=== PATIENT | male | born 1955 | race American Indian/Alaskan Native ===

== ENCOUNTER 2016-11-07 15:47 | Emergency (ER) | payer BC, MEDICARE ==
[2016-11-07 15:58] VITALS: BP 146/88
[2016-11-07] MEDS ORDERED: FUL-GLO OP ONE (17:14)
[2016-11-07] MEDS ORDERED: TETRACAINE 0.5% OS STA (17:14)
--- NOTE | 2016-11-07 17:30 | Emergency Department Report ---
ED General Adult HPI - General Chief complaint: Skin/Abscess/Foreign Body Stated complaint: POSS SPIDER BITE NECK Time Seen by Provider: 11/07/16 17:01 Source: patient Mode of arrival: Ambulatory Limitations: No Limitations - History of Present Illness Initial comments: PT states he works for the [employer]. PT states that yesterday, he was eating outside, and it felt like something bit his neck. PT states he could feel 3 puncture wounds to the L side of his neck. PT states after work, he was outside and he thinks he got some mosquito bites. PT states he had itchy painful bumps to his L side of face. PT reports the L side of his tongue is hurting him and he has had subjective fevers. Pt states he asked an EMT for assistance and was told that he had spider bite. PT states he was cleaning the bite site with alcohol but the pain and itching has increased. PT states he was sent home from work today. PT states he has worked outside for a while and he has never felt this way after an insect bite MD Complaint: rash -: Gradual, days(s) Location: neck Radiation: non-radiation Severity scale (0 -10): 8 Quality: burning Consistency: constant Improves with: none Worsens with: other (gradually ) Associated Symptoms: fever/chills, rash. denies: chest pain, nausea/vomiting Treatments Prior to Arrival: none - Related Data Previous Rx's Medication Instructions Recorded Last Taken Type HYDROcodone/APAP 5-325 [[place] 1 each PO Q6HR PRN #12 tablet 11/07/16 Unknown Rx 5/325] Ibuprofen [Motrin] 600 mg PO Q8H PRN #15 tablet 11/07/16 Unknown Rx Valacyclovir HCl [Valtrex] 1,000 mg PO TID #21 tablet 11/07/16 Unknown Rx Allergies Allergy/AdvReac Type Severity Reaction Status Date / Time No Known Allergies Allergy Verified 11/07/16 15:53 ED Review of Systems ROS: Stated complaint: POSS SPIDER BITE NECK Other details as noted in HPI Comment: All other systems reviewed and negative Constitutional: fever, malaise Eyes: eye discharge (tearing ) ENT: throat pain (mouth pain, left side of tongue pain ) Gastrointestinal: denies: abdominal pain Musculoskeletal: other (neck pain ) Skin: other (bites ) ED Past Medical Hx - Past Medical History Previous Medical History?: Yes Hx Hypertension: Yes Additional medical history: High cholesterol - Surgical History Hx Pacemaker: Yes - Social History Smoking Status: Never Smoker Substance Use Type: None - Medications Home Medications: Home Medications Medication Instructions Recorded Confirmed Last Taken Type HYDROcodone/APAP 5-325 [[place] 1 each PO Q6HR PRN #12 tablet 11/07/16 Unknown Rx 5/325] Ibuprofen [Motrin] 600 mg PO Q8H PRN #15 tablet 11/07/16 Unknown Rx Valacyclovir HCl [Valtrex] 1,000 mg PO TID #21 tablet 11/07/16 Unknown Rx ED Physical Exam - General Limitations: No Limitations General appearance: alert, in no apparent distress - Head Head exam: Present: atraumatic, normocephalic, other (scabs to L cheek ) - Eye Eye exam: Present: normal appearance, PERRL, EOMI, other (no dendritic ulcerations noted to L cornea ). Absent: conjunctival injection, nystagmus, periorbital swelling, periorbital tenderness - ENT ENT exam: Present: normal exam, mucous membranes moist, TM's normal bilaterally , normal external ear exam, other (post auricular vesicles ) - Neck Neck exam: Present: tenderness, full ROM, lymphadenopathy, other (rash to L post neck, appears to be ruptured blisters, erythematous base, scabs present ). Absent: meningismus - Respiratory Respiratory exam: Present: normal lung sounds bilaterally. Absent: respiratory distress, chest wall tenderness - Cardiovascular Cardiovascular Exam: Present: regular rate, normal rhythm, normal heart sounds - GI/Abdominal GI/Abdominal exam: Present: soft. Absent: tenderness - Extremities Exam Extremities exam: Present: normal inspection, full ROM - Back Exam Back exam: Present: normal inspection, full ROM. Absent: tenderness, CVA tenderness (R), CVA tenderness (L), rash noted - Neurological Exam Neurological exam: Present: alert, oriented X3, normal gait - Psychiatric Psychiatric exam: Present: normal affect, normal mood - Skin Skin exam: Present: warm, dry, erythema, vesicles. Absent: intact ED Course Vital Signs 11/07/16 15:53 Temperature 97.3 F L Pulse Rate 81 Respiratory 16 Rate Blood Pressure 146/88 O2 Sat by Pulse 100 Oximetry - Reevaluation(s) Reevaluation #1: 11/07/16 17:38 PT aware of dx. PT aware he is contagious. PT states he has been by his 1 year old granddaughter. PT advised to inform his grandchild's parents and to have them follow up with the [place] police [place] - Pulse Oximetry Interpretation Digit-Finger Initial Pulse Oximetry Readin Actions Taken: none ED Medical Decision Making - Differential Diagnosis spider bite, shingles Critical Care Time: No Critical care attestation.: If time is entered above; I have spent that time in minutes in the direct care of this critically ill patient, excluding procedure time. ED Disposition Clinical Impression: Shingles Qualifiers: Herpes zoster complications: without complications Qualified Code(s): B02.9 - Zoster without complications Disposition: TO HOME OR SELFCARE Is pt being admited?: No Does the pt Need Aspirin: No Condition: Stable Instructions: Herpes Zoster (ED) Additional Instructions: IF you need to take [place] to treat your pain, do not drive or drink alcohol after Follow up with PCP in 3-5 days You are contagious. Avoid children under 1 years of age, those who have not had the chicken pox or the chicken pox vaccine and the elderly Return to the ED if you develop eye pain, changes in your vision or rash around your eyes Prescriptions: HYDROcodone/APAP 5-325 [[place] 5/325] 1 each PO Q6HR PRN #12 tablet PRN Reason: Pain Ibuprofen [Motrin] 600 mg PO Q8H PRN #15 tablet PRN Reason: Pain Valacyclovir HCl [Valtrex] 1,000 mg PO TID #21 tablet Referrals: PRIMARY CAREMD [Primary Care Provider] - 3-5 Days RODERICK BLAKE MD [Staff Physician] - 3-5 Days [facility] [Outside] - 3-5 Days Forms: Work/School Release Form(ED) Time of Disposition: 18:03
== END 2016-11-07 18:24 | disposition home or self-care (01) ==
LOC: ED 15:47
DX: B02.9 Zoster without complications (principal); E78.00 Pure hypercholesterolemia, unspecified; I10 Essential (primary) hypertension
CPT/HCPCS: 99282

== ENCOUNTER 2018-04-28 14:58 | Emergency (ER) | payer BC ==
[2018-04-28 15:35] VITALS: BP 115/78
[2018-04-28 16:23] LABS: Hematocrit 45.3 % (35.5-45.6); Hemoglobin 15.5 gm/dl (11.8-15.2); Mean Corpuscular HGB Conc 34 % (32-34); Mean Corpuscular Volume 91 fl (84-94); Platelet Count 179 K/mm3 (140-440); Red Cell Distribution Width 12.9 % (13.2-15.2)
[2018-04-28 16:42] LABS: BUN/Creatinine Ratio 17; Blood Urea Nitrogen 22 mg/dL (9-20); Calcium 8.7 mg/dL (8.4-10.2); Hemolysis Index 50
[2018-04-28 17:03] LABS: Alanine Aminotransferase < 5 units/L (7-56)
--- NOTE | 2018-04-28 17:41 | XRay Report ---
FINAL REPORT EXAM: XR CHEST ROUTINE 2V HISTORY: COUGH TECHNIQUE: PA and lateral views of the chest Comparison: None FINDINGS: There is mild elevation of the right hemidiaphragm. There is no evidence of focal infiltrate, pneumothorax or pleural fluid collection. The cardiomediastinal silhouette is normal in appearance. The bony structures are unremarkable. IMPRESSION: 1. No evidence of an acute pulmonary process 2. Elevation the right hemidiaphragm. If further imaging is required, CT chest may be helpful.
--- NOTE | 2018-04-28 18:16 | ED Elopement Review ---
ED Pt Elopement review - Results review Lab results: Laboratory Tests 04/28/18 04/28/18 16:13 16:13 WBC 7.5 RBC 5.00 Hgb 15.5 H Hct 45.3 MCV 91 MCH 31 MCHC 34 RDW 12.9 L Plt Count 179 Sodium 140 Potassium 4.1 Chloride 103.2 Carbon Dioxide 25 Anion Gap 16 BUN 22 H Creatinine 1.3 Estimated GFR > 60 BUN/Creatinine Ratio 17 Glucose 85 Calcium 8.7 Total Bilirubin 0.20 AST < 5 L ALT < 5 L Alkaline Phosphatase 73 Troponin T < 0.010 Total Protein 7.3 Albumin 4.0 Albumin/Globulin Ratio 1.2 - Call Back decision Pt Call Back Decision: No action required
[2018-04-28] MEDS ORDERED: DECADRON IV ONE (20:05)
[2018-04-28] MEDS ORDERED: DUONEB *Not for PRN Use IH ONE (20:05)
[2018-04-28] MEDS ORDERED: THORAZINE 25 MG in NACL 0.9% 50 ML IV ONE (21:05)
--- NOTE | 2018-04-28 21:17 | Emergency Department Report ---
- General Chief Complaint: Upper Respiratory Infection Stated Complaint: FEVER/COUGH/DIZZY Time Seen by Provider: 04/28/18 19:40 Source: patient Mode of arrival: Ambulatory Limitations: No Limitations - History of Present Illness Initial Comments: This is a 63-year-old male nontoxic, well nourished in appearance, no acute signs of distress presents to the ED with c/o of productive cough, subjective fevers, body aches, rhinorrhea, nasal congestion x3 days. Patient describes pro ductive cough as yellow mucus production. Patient denies any sick contact. Patient stated that he seen his PCP and was given codeine cough syrup which now he started to have burping as well. Patient stated that his PCP prescribed him Thorazine but has not filled it yet. Patient denies any recent travels, long car, recent hospital stays. Patient denies any calf pain or calf tenderness. Patient denies any chest pain, short of breath, fever, chills, nausea, vomiting, hemoptysis, numbness, tingling, headache or stiff neck. Patient denies any allergies or PMH. MD Complaint: cough, rhinorrhea, nasal congestion, other (body aches) -: days(s) (3) Severity: mild Severity scale (0 -10): 8 Quality: aching Consistency: constant Improves With: nothing Worsens With: nothing Associated Symptoms: fever, rhinorrhea, nasal congestion, cough. denies: chills, myalgias, diaphoresis, headache, sore throat, stiff neck, chest pain, shortness of breath, abdominal pain, nausea, vomiting, diarrhea, dysuria, rash, confusion, right sweats, weight loss, epistaxis, hoarseness, ear pain Treatments Prior to Arrival: none - Related Data Previous Rx's Medication Instructions Recorded Last Taken Type HYDROcodone/APAP 5-325 [[place] 1 each PO Q6HR PRN #12 tablet 11/07/16 Unknown Rx 5/325] Ibuprofen [Motrin] 600 mg PO Q8H PRN #15 tablet 11/07/16 Unknown Rx Valacyclovir HCl [Valtrex] 1,000 mg PO TID #21 tablet 11/07/16 Unknown Rx ALBUTEROL Inhaler(NF) [VENTOLIN 2 puff IH Q4-6H PRN #1 inha 04/28/18 Unknown Rx Inhaler(NF)] Azithromycin [Zithromax Z-AYAH] 250 mg PO DAILY #6 tablet 04/28/18 Unknown Rx Benzonatate [Tessalon Perle] 100 mg PO Q8H PRN #20 capsule 04/28/18 Unknown Rx Prednisone [predniSONE 10 mg 10 mg PO .TAPER #1 tab.ds.pk 04/28/18 Unknown Rx (6-Day Pack, 21 Tabs)] Allergies Allergy/AdvReac Type Severity Reaction Status Date / Time No Known Allergies Allergy Verified 11/07/16 15:53 ED Review of Systems ROS: Stated complaint: FEVER/COUGH/DIZZY Other details as noted in HPI Constitutional: fever. denies: chills Eyes: denies: eye pain, eye discharge, vision change ENT: congestion. denies: ear pain, throat pain Respiratory: cough. denies: shortness of breath, wheezing Cardiovascular: denies: chest pain, palpitations Endocrine: no symptoms reported Gastrointestinal: denies: abdominal pain, nausea, diarrhea Genitourinary: denies: urgency, dysuria Musculoskeletal: denies: back pain, joint swelling, arthralgia Skin: denies: rash, lesions Neurological: denies: headache, weakness, paresthesias Psychiatric: denies: anxiety, depression Hematological/Lymphatic: denies: easy bleeding, easy bruising ED Past Medical Hx - Past Medical History Hx Hypertension: Yes Additional medical history: High cholesterol - Surgical History Past Surgical History?: Yes Hx Pacemaker: Yes - Social History Smoking Status: Never Smoker Substance Use Type: None - Medications Home Medications: Home Medications Medication Instructions Recorded Confirmed Last Taken Type HYDROcodone/APAP 5-325 [[place] 1 each PO Q6HR PRN #12 tablet 11/07/16 Unknown Rx 5/325] Ibuprofen [Motrin] 600 mg PO Q8H PRN #15 tablet 11/07/16 Unknown Rx Valacyclovir HCl [Valtrex] 1,000 mg PO TID #21 tablet 11/07/16 Unknown Rx ALBUTEROL Inhaler(NF) [VENTOLIN 2 puff IH Q4-6H PRN #1 inha 04/28/18 Unknown Rx Inhaler(NF)] Azithromycin [Zithromax Z-AYAH] 250 mg PO DAILY #6 tablet 04/28/18 Unknown Rx Benzonatate [Tessalon Perle] 100 mg PO Q8H PRN #20 capsule 04/28/18 Unknown Rx Prednisone [predniSONE 10 mg 10 mg PO .TAPER #1 tab.ds.pk 04/28/18 Unknown Rx (6-Day Pack, 21 Tabs)] ED Physical Exam - General Limitations: No Limitations General appearance: alert, in no apparent distress - Head Head exam: Present: atraumatic, normocephalic - Eye Eye exam: Present: normal appearance - ENT ENT exam: Present: normal exam, normal orophraynx, mucous membranes moist - Neck Neck exam: Present: normal inspection, full ROM. Absent: tenderness, meningismus - Respiratory Respiratory exam: Present: normal lung sounds bilaterally, wheezes (bilateral lower lobes). Absent: respiratory distress, rales, rhonchi, stridor, chest wall tenderness, accessory muscle use, decreased breath sounds, prolonged expiratory - Cardiovascular Cardiovascular Exam: Present: regular rate, normal rhythm, normal heart sounds. Absent: bradycardia, tachycardia, irregular rhythm, systolic murmur, diastolic murmur, rubs, gallop - GI/Abdominal GI/Abdominal exam: Present: soft, normal bowel sounds. Absent: distended, tenderness, guarding, rebound, rigid, diminished bowel sounds - Rectal Rectal exam: Present: deferred - Extremities Exam Extremities exam: Present: normal inspection, full ROM, normal capillary refill - Back Exam Back exam: Present: normal inspection, full ROM - Neurological Exam Neurological exam: Present: alert, oriented X3 - Psychiatric Psychiatric exam: Present: normal affect, normal mood - Skin Skin exam: Present: warm, dry, intact, normal color. Absent: rash ED Course Vital Signs 04/28/18 04/28/18 04/28/18 15:31 21:20 21:27 Temperature 97.5 F L Pulse Rate 71 Pulse Rate [ 76 80 Anterior Bilateral Throughout] Respiratory 18 Rate Respiratory 16 18 Rate [Anterior Bilateral Throughout] Blood Pressure 115/78 O2 Sat by Pulse 97 Oximetry - Reevaluation(s) Reevaluation #1: 04/28/18 21:18 Patient is speaking in full sentences with no signs of distress noted. ED Medical Decision Making - Lab Data Result diagrams: 04/28/18 16:13 04/28/18 16:13 - Medical Decision Making This is a 63-year-old male that presents with bronchitis. Patient is stable and was examined by me. Chest x-ray has been obtained and dictated by radiologist with normal exam. Patient is notified of x-ray results with no questions noted. CT of abdominal with contrast obtained due to abnormal xray of chest. Dictated by the radiologist and is unremarkable. Due to patient having symptoms of upper respiratory infection and worsening I will treat patient empirically with zpak. Patient was instructed to increase hydration, rest and take Motrin for fever episodes. Patient received prednisone and DuoNeb in the ED. wheezing has subsided after treatment. Patient also received Thorazine and stated hiccups subsided as well. Vitals stable. Patient is nonfebrile and normal heart rate. Patient was instructed Follow-up with a primary care doctor in 3-5 days or if symptoms worsen and continue return to emergency room as soon as possible. At time time of discharge, the patient does not seem toxic or ill in appearance. No acute signs of distress noted. Patient agrees to discharge treatment plan of care. No further questions noted by the patient. Critical care attestation.: If time is entered above; I have spent that time in minutes in the direct care of this critically ill patient, excluding procedure time. ED Disposition Clinical Impression: Bronchitis, Hiccups Disposition: DC-01 TO HOME OR SELFCARE Is pt being admited?: No Does the pt Need Aspirin: No Condition: Stable Instructions: Acute Bronchitis (ED) Additional Instructions: Follow-up with a primary care doctor in 3-5 days or if symptoms worsen and continue return to emergency room as soon as possible. Prescriptions: ALBUTEROL Inhaler(NF) [VENTOLIN Inhaler(NF)] 2 puff IH Q4-6H PRN #1 inha PRN Reason: Wheezing Azithromycin [Zithromax Z-AYAH] 250 mg PO DAILY #6 tablet Benzonatate [Tessalon Perle] 100 mg PO Q8H PRN #20 capsule PRN Reason: Cough Prednisone [predniSONE 10 mg (6-Day Pack, 21 Tabs)] 10 mg PO .TAPER #1 tab.ds.pk Referrals: PRIMARY CAREMD [Primary Care Provider] - 3-5 Days TODD HE MD [Staff Physician] - 3-5 Days [facility] [Outside] - 3-5 Days Forms: Work/School Release Form(ED)
--- NOTE | 2018-04-28 22:33 | Cat Scan Report ---
FINAL REPORT EXAM: CT ABDOMEN PELVIS W CON HISTORY: epigastric pain TECHNIQUE: Following IV administration of 100 cc of Omnipaque 350 axial helical imaging was performe d through the abdomen and pelvis with sagittal and coronal reformatted images obtained. Delayed axial helical imaging was also performed through the lower abdomen and pelvis. Comparison: None FINDINGS: There is platelike atelectasis or scar formation in the right lung base. There elevation the right hemidiaphragm. The liver, spleen, pancreas, kidneys and adrenal glands are unremarkable in appearance. The gallbladder is moderately distended and unremarkable. The bowel is normal caliber. The appendix is normal caliber. There is colonic diverticulosis without radiographic evidence of diverticulitis. There is no evidence of pneumoperitoneum or free fluid. The abdominal aorta is normal caliber. There is atherosclerotic vascular calcification of the large a nd medium caliber arteries. There is no evidence of pathologic intra-abdominal adenopathy by CT size criteria. The urinary bladder is moderately to markedly distended but otherwise unremarkable. The prostate gland appears to be upper limits of normal size. There are small bilateral inguinal hernias that contain fat. The bony structures are notable for multiple level degenerative facet change in the lumbar spine and evidence of degenerative disc change at the L5-S1 level. There is a small umbilical hernia that contains fat. IMPRESSION: 1. No evidence of an acute intra-abdominal process. 2. Colonic diverticulosis. 3. Moderate to marked distention of the urinary bladder. 4. Small bilateral inguinal hernias that contain fat. 5. Spondylitic change lumbar spine. 6. Small umbilical hernia that contains fat.
== END 2018-04-28 22:55 | disposition home or self-care (01) ==
LOC: ED 14:58
DX: J40 Bronchitis, not specified as acute or chronic (principal); R06.6 Hiccough; I10 Essential (primary) hypertension; E78.00 Pure hypercholesterolemia, unspecified
CPT/HCPCS: 36415; 71046; 74177; 80053; 84484; 85027; 93005; 93010; 94640; 96365; 96375; 99284; J1100; J3230; Q9967

== ENCOUNTER 2020-03-01 16:47 | Emergency (ER) | payer BC ==
[2020-03-01 17:41] VITALS: BP 142/63
[2020-03-01] MEDS ORDERED: IBUPROFEN 800 MG TAB PO ONE (17:45)
[2020-03-01] MEDS ORDERED: CYCLOBENZAPRINE 10 MG TAB PO ONE (17:45)
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
== END 2020-03-01 20:26 | disposition home or self-care (01) ==
LOC: ED 16:47
DX: S39.012A Strain of muscle, fascia and tendon of lower back, initial encounter (principal); S13.4XXA Sprain of ligaments of cervical spine, initial encounter; I10 Essential (primary) hypertension; Z98.890 Other specified postprocedural states; Z79.1 Long term (current) use of non-steroidal anti-inflammatories (NSAID); Z79.2 Long term (current) use of antibiotics; Z79.899 Other long term (current) drug therapy; V49.49XA Driver injured in collision with other motor vehicles in traffic accident, initial encounter; Y93.89 Activity, other specified; Y92.410 Unspecified street and highway as the place of occurrence of the external cause; Y99.8 Other external cause status
CPT/HCPCS: 72040; 72100

== ENCOUNTER 2021-07-12 22:43 | Emergency (ER) | payer BC, OTHER ==
[2021-07-13] MEDS ORDERED: IBUPROFEN 600 MG TAB PO ONE (01:03)
[2021-07-13] MEDS ORDERED: SODIUM CHLORIDE 0.9% 1000 ML 1,000 ML IV ONE (01:03)
[2021-07-13] MEDS ORDERED: ACETAMINOPHEN 500 MG TAB PO ONE (01:03)
[2021-07-13 01:32] LABS: Basophils % (Auto) 0.6 % (0.0-1.8); Eosinophils # (Auto) 0.2 K/mm3 (0.0-0.4); Eosinophils % (Auto) 4.3 % (0.0-4.3); Hematocrit 41.3 % (35.5-45.6); Hemoglobin 13.7 gm/dl (11.8-15.2); Lymphocytes # (Auto) 2.8 K/mm3 (1.2-5.4); Lymphocytes % (Auto) 50.5 % (13.4-35.0); Mean Corpuscular HGB Conc 33 % (32-34); Mean Corpuscular Volume 88 fl (84-94); Monocytes # (Auto) 0.5 K/mm3 (0.0-0.8); Monocytes % (Auto) 9.1 % (0.0-7.3); Platelet Count 170 K/mm3 (140-440); Red Blood Count 4.67 M/mm3 (3.65-5.03); Red Cell Distribution Width 13.2 % (13.2-15.2)
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
[2021-07-13 01:51] LABS: Alanine Aminotransferase 25 units/L (7-56); Albumin 4.2 g/dL (3.9-5); BUN/Creatinine Ratio 18; Blood Urea Nitrogen 16 mg/dL (9-20); Calcium 8.9 mg/dL (8.4-10.2); Hemolysis Index 9
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
[2021-07-13 03:22] VITALS: BP 136/88
== END 2021-07-13 03:22 | disposition home or self-care (01) ==
LOC: ED 22:43
DX: M62.838 Other muscle spasm (principal); M54.2 Cervicalgia; M62.830 Muscle spasm of back; M54.50 Low back pain, unspecified; I10 Essential (primary) hypertension; E78.00 Pure hypercholesterolemia, unspecified; Z79.899 Other long term (current) drug therapy; V87.7XXA Person injured in collision between other specified motor vehicles (traffic), initial encounter; Y93.89 Activity, other specified; Y92.488 Other paved roadways as the place of occurrence of the external cause; Y99.8 Other external cause status
CPT/HCPCS: 36415; 70450; 72100; 72125; 80053; 85025; 96360; 99284; J7030; Q0162

== ENCOUNTER 2021-12-01 16:27 | Emergency (ER) | payer BC, OTHER ==
[2021-12-01 16:39] VITALS: BP 135/69
[2021-12-01 17:34] LABS: Basophils % (Auto) 0.4 % (0.0-1.8); Eosinophils # (Auto) 0.1 K/mm3 (0.0-0.4); Eosinophils % (Auto) 1.5 % (0.0-4.3); Hemoglobin 15.2 gm/dl (11.8-15.2); Lymphocytes # (Auto) 2.3 K/mm3 (1.2-5.4); Lymphocytes % (Auto) 24.6 % (13.4-35.0); Mean Corpuscular HGB Conc 33 % (32-34); Mean Corpuscular Volume 90 fl (84-94); Monocytes # (Auto) 1.2 K/mm3 (0.0-0.8); Monocytes % (Auto) 12.5 % (0.0-7.3); Platelet Count 222 K/mm3 (140-440); Red Blood Count 5.11 M/mm3 (3.65-5.03); Red Cell Distribution Width 13.1 % (13.2-15.2)
--- NOTE | 2021-12-01 17:45 | XRay Report ---
ABDOMEN 1 VIEW 12/01/2021 5:16 PM INDICATION / CLINICAL INFORMATION: constipation and abd pain. COMPARISON: CT dated 04/28/2018 FINDINGS: TUBES / LINES: None. BOWEL GAS PATTERN: No significant abnormality. FREE AIR / EXTRALUMINAL GAS: None. ADDITIONAL FINDINGS: 8 cm rounded dense mass in the left upper quadrant. IMPRESSION: 1. 8 cm rounded dense mass in the left upper quadrant. Differential considerations include calcified infarcted spleen or dense ingested contents in the stomach. CT can be considered for further evaluati on as indicated. Of note this was not seen on the CT dated 04/28/2018 Signer Name: Yan Patel MD Signed: 12/01/2021 5:41 PM Workstation Name: [id number]
[2021-12-01 17:51] LABS: Alanine Aminotransferase 19 units/L (7-56); Albumin 4.8 g/dL (3.9-5); BUN/Creatinine Ratio 9; Blood Urea Nitrogen 10 mg/dL (9-20); Calcium 9.7 mg/dL (8.4-10.2); Hemolysis Index 4
== END 2021-12-01 23:00 | disposition left against medical advice (07) ==
LOC: ED 16:27
DX: R10.9 Unspecified abdominal pain (principal); Z53.21 Procedure and treatment not carried out due to patient leaving prior to being seen by health care provider
CPT/HCPCS: 36415; 74018; 80053; 83690; 85025